=== PATIENT | male | born 1940 | race Two or more races ===

== ENCOUNTER 2019-09-12 15:03 | Emergency (ER) | payer MEDICARE, OTHER ==
[~2019-09-12] VITALS: Ht 165.1 cm; Wt 78.9 kg
[2019-09-12 15:16] VITALS: BP 164/93
[2019-09-12] MEDS ORDERED: TETANUS-DIPTH-ACEL PERTUSSIS 0.5ML SYR Tdap IM ONE (16:00)
[2019-09-12] MEDS ORDERED: cefTRIAXone SOD 1,000 MG VL IM ONE (16:00)
[2019-09-12] MEDS ORDERED: LIDOCAINE 1% HCL (LOCAL ANESTH.) INJ 20ML MDV ONE (16:09)
[2019-09-12] MEDS ORDERED: BACITRACIN INJ 50000 UNIT VIAL TOP ONE (16:45)
[2019-09-12] MEDS ORDERED: NEOMYCIN-BACITRACIN-POLYM UNITDOSE PKG TOP OINT TOP ONE (16:50)
== END 2019-09-12 17:01 | disposition home or self-care (01) ==
LOC: ER 15:03
DX: S61.411A Laceration without foreign body of right hand, initial encounter (principal); M19.90 Unspecified osteoarthritis, unspecified site; M85.80 Other specified disorders of bone density and structure, unspecified site; W26.9XXA Contact with unspecified sharp object(s), initial encounter; Y93.89 Activity, other specified; Y92.89 Other specified places as the place of occurrence of the external cause; Y99.8 Other external cause status
CPT/HCPCS: 12002; 73130; 90471; 90715; 96372; 99284; J0696; J2001

== ENCOUNTER 2019-09-21 09:56 | Emergency (ER) | payer MEDICARE ==
[~2019-09-21] VITALS: Ht 165.1 cm; Wt 79.8 kg
[2019-09-21 11:37] VITALS: BP 142/77
== END 2019-09-21 11:20 | disposition home or self-care (01) ==
LOC: ER 09:56
DX: S61.411D Laceration without foreign body of right hand, subsequent encounter (principal); X58.XXXD Exposure to other specified factors, subsequent encounter

== ENCOUNTER 2021-02-18 12:33 | Emergency (ER) | payer MEDICARE ==
[~2021-02-18] VITALS: Ht 165.1 cm; Wt 79.4 kg
[2021-02-18 12:46] VITALS: BP 161/107
[2021-02-18 13:56] LABS: Basophils # (auto) 0 10 ^3/uL (0-0.2); Basophils % (auto) 0.1 % (0.0-2.0); Eosinophils # (auto) 0 10 ^3/uL (0-0.8); Hematocrit 52.4 % (41.0-53.0); Hemoglobin 17.2 g/dL (13.5-17.5); Lymphocytes # (auto) 0.7 10 ^3/uL (0.4-5.4); Lymphocytes % (auto) 7.2 % (10.0-50.0); Mean Corpuscular Hemoglobin 31.6 pg (28.0-32.0); Mean Corpuscular Hgb Conc. 32.9 g/dL (32.0-36.0); Mean Corpuscular Volume 96.1 fL (80.0-100.0); Monocytes # (auto) 0.5 10 ^3/uL (0-1.3); Monocytes % (auto) 5.2 % (0.0-12.0); Neutrophils % (auto) 87.5 % (37.0-80.0); Red Blood Cells 5.45 10^6/uL (4.5-5.90); Red Cell Distribution Width 13.4 % (11.8-14.3); White Blood Cell 10.3 10^3/uL (4.4-10.8)
[2021-02-18 14:09] LABS: Urine Bacteria NONE SEEN /hpf (None Seen); Urine Blood TRACE /uL (Negative); Urine Mucus FEW (None Seen); Urine Specific Gravity 1.014 (1.001-1.035); Urine WBC 1 /hpf (0 - 3)
[2021-02-18 14:28] LABS: Albumin 3.9 g/dL (3.4-5.0); BUN/Creatinine Ratio 13.5; Calcium 9.4 mg/dL (8.5-10.1); Potassium 4.1 mmol/L (3.5-5.1)
[2021-02-18 14:29] LABS: Bilirubin, Total 0.7 mg/dL (0.2-1.0); Total Protein 8.2 g/dL (6.4-8.2)
== END 2021-02-18 20:52 | disposition left against medical advice (07) ==
LOC: ER 12:33
DX: N40.1 Benign prostatic hyperplasia with lower urinary tract symptoms (principal); R33.8 Other retention of urine; E11.9 Type 2 diabetes mellitus without complications
CPT/HCPCS: 36415; 51702; 74176; 80053; 81001; 85025; 93005